=== PATIENT | male | born 1950 | race Caucasian/White ===

== ENCOUNTER → 2017-11-27 14:55 | Outpatient (CLI) | payer MEDICARE ==
[~2017-11-27 14:55] MED LIST: ASPIRIN EC325 M1 PO; CRESTOR40 MG PO; ISOSORBIDE MONO30 M1 PO; METOPROLOL TART25 MG PO
[2017-11-30 08:24] VITALS: BMI 23.4
== END | disposition home or self-care (01) ==
LOC: D.US 14:55
DX: N43.3 Hydrocele, unspecified (principal)

== ENCOUNTER 2017-11-30 07:45 | Day surgery (SDC) | payer MEDICARE ==
[2017-11-29 09:56] LABS: BASOPHILS 0.4 % (0-2); EOSINOPHILS 2.4 % (0-7); HEMATOCRIT 44.8 % (42.0-54.0); HEMOGLOBIN 15.6 g/dL (13.5-17.5); IMMATURE GRANULOCYTES 0.3 % (0-5); LYMPHOCYTES 21.6 % (15-50); MCH 33.2 pg (26.0-34.0); MCHC 34.8 g/dL (31.0-37.0); MCV 95.3 fL (80.0-100.0); MEAN PLATELET VOLUME 9.3 fL (7.4-10.4); MONOCYTES 5.8 % (2-11); NEUTROPHILS 69.5 % (40-80); PLATELET COUNT 181 10x3/uL (130-400); WBC 13.7 10x3/uL (4.8-10.8)
[2017-11-29 10:09] LABS: APTT 28.4 SECONDS (22.8-39.4); INR 0.95 (0.85-1.17); PROTIME 12.3 SECONDS (11.6-15.0)
[~2017-11-30] VITALS: Ht 177.8 cm; Wt 73.9 kg
--- NOTE | ~2017-11-30 | OP ---
PATIENT NAME: GERALDINE ALBERT MEDICAL RECORD: [id number] :50 LOCATION:D.OPS ADMISSION DATE: SURGEON: ZACH HUTTON MD DATE OF OPERATION: 11/30/2017 SURGEON: Zach Huttno MD ANESTHESIA: General anesthesia by Fabien Diana CRNA. DIAGNOSIS: Left hydrocele. PROCEDURE: Left hydrocelectomy, Jaboulay procedure. FINDINGS: Left hydrocele contained 500 mL of fluid. Signs of previous recurrent epididymal orchitis. SPECIMENS: 1. Left hydrocele sac. 2. Left appendix epididymis. ESTIMATED BLOOD LOSS: None. CLINICAL HISTORY: This is a 67-year-old male, who complains of a progressively enlarging left hemiscrotum. He has had episodic left testicular pain for the past 13 years. Now that it has increased in size, he finds it difficult to walk. He walks forces at [employer] as his job. The lesion in the hemiscrotum transilluminates and is presumably a hydrocele. He comes to have it drained. He is not allergic to any medications. He was given Ancef valuation consultant to the OR. DESCRIPTION OF PROCEDURE: The patient was given induction of general anesthesia in supine position. He was then shaved, prepped and draped. A midline scrotal incision was made about 3.5-4 cm in length. We then went down through the dartos fascia with a #10 scalpel blade. This brought us immediately to the hydrocele. The tunica vaginalis was incised and we started to drain the fluid out of the hydrocele. The Yankauer suction was placed into the left hemiscrotum to remove the hydrocele fluid. A total of 500 mL of fluid was removed. The incision was lengthened using Metzenbaum scissors. The testicle was then everted out of the left hemiscrotum. There is significant scarring and cross healing from previous epididymal orchitis. There was another large cyst, which was deflated and the cyst wall was marsupialized. The appendix epididymis was seen to prevent future pain from torsion of the appendix epididymis. This was completely excised. The redundant hydrocele sac was excised using the Bovie. This was then sutured to its opposite member posterior to the cord. This is a Jaboulay procedure. 3-0 Vicryl was used for this procedure. The testicle was then returned to its hemiscrotum. The dartos fascia was reapproximated using simple interrupted 3-0 Vicryl. A 4-0 Monocryl in simple interrupted form was used to close the scrotal skin. We infiltrated the incision line with 0.25% Marcaine with epinephrine. Fluffs and mesh panties were then given to the patient. I will see the patient in followup in 2 weeks' time to review the pathology with him and to check the wound healing. TRANSINT:[id number] Voice Confirmation ID: [id number] DOCUMENT ID: [id number] OPERATIVE REPORT [id number] GERALDINE ALBERT, ZACH Dixon MD at 1830 CC: [id number] DICTATION DATE: 11/30/17 1441 PLANT SPECIALIST: 11/30/[address] [facility] 11/30/17 [facility] [address] [place] [address]
[2017-11-30 08:24] VITALS: BP 111/67; Ht 177.8 cm; Wt 73.9 kg
== END 2017-11-30 16:45 | disposition home or self-care (01) ==
LOC: D.OPS 07:45 → D.PAN 10:00 → D.OPS 10:25 → D.PAN 10:30 → D.OPS 12:30
PROVIDERS: Anesthesiology
DX: N43.3 Hydrocele, unspecified (principal); Q55.4 Other congenital malformations of vas deferens, epididymis, seminal vesicles and prostate; Z01.812 Encounter for preprocedural laboratory examination

== ENCOUNTER 2019-10-02 22:59 | Emergency (ER) | payer MEDICARE ==
[~2019-10-02] VITALS: Ht 177.8 cm; Wt 72.7 kg
[2019-10-02 23:05] VITALS: Ht 177.8 cm; Wt 72.7 kg
[2019-10-03 00:15] LABS: BASOPHILS 0.3 % (0-2); EOSINOPHILS 1.5 % (0-7); HEMATOCRIT 43.3 % (42.0-54.0); HEMOGLOBIN 14.6 g/dL (13.5-17.5); IMMATURE GRANULOCYTES 0.4 % (0-5); LYMPHOCYTES 14.2 % (15-50); MCH 31.9 pg (26.0-34.0); MCHC 33.7 g/dL (31.0-37.0); MCV 94.5 fL (80.0-100.0); MEAN PLATELET VOLUME 9.5 fL (7.4-10.4); MONOCYTES 4.7 % (2-11); NEUTROPHILS 78.9 % (40-80); PLATELET COUNT 186 10x3/uL (130-400); RBC 4.58 10x6/uL (4.20-6.10); RDW 14.3 % (11.5-14.5); WBC 14.3 10x3/uL (4.8-10.8)
[2019-10-03 00:22] LABS: APTT 26.6 SECONDS (22.8-39.4); CALC OSMOLALITY 276 mosm/kg (275-300); CALCIUM 9.6 mg/dL (8.5-10.1); CARBON DIOXIDE 28.6 mmol/L (21.0-32.0); CHLORIDE - SERUM 101 mmol/L (98-107); CREATININE - SERUM 1.3 mg/dL (0.6-1.3); GLUCOSE 156 mg/dL (74-106); INR 0.93 (0.85-1.17); POTASSIUM - SERUM 3.8 mmol/L (3.5-5.1); PROTIME 12.5 SECONDS (11.6-15.0); SODIUM 136 mmol/L (136-145); UREA NITROGEN 17 mg/dL (7-18); eGFR NON AFRICAN AMERICAN 58 mL/min (90-120)
[2019-10-03 00:36] LABS: ALBUMIN 3.5 g/dL (3.4-5.0); ALKALINE PHOSPHATASE 126 U/L (30-120); ALT (SGPT) 23 U/L (10-68); BILIRUBIN - TOTAL 0.21 mg/dL (0.2-1.3); CKMB 1.5 U/L (0.0-3.6); CREATINE KINASE 135 UL (21-232); PROTEIN - SERUM 7.9 g/dL (6.4-8.2); TROPONIN-I < 0.017 ng/mL (0.000-0.060)
[2019-10-03 02:38] VITALS: BP 111/76
== END 2019-10-03 02:38 | disposition left against medical advice (07) ==
LOC: D.ER 22:59
PROVIDERS: Emergency Medicine
DX: I16.0 Hypertensive urgency (principal); I10 Essential (primary) hypertension; F17.210 Nicotine dependence, cigarettes, uncomplicated; F41.9 Anxiety disorder, unspecified; R06.00 Dyspnea, unspecified; I25.2 Old myocardial infarction; Z95.5 Presence of coronary angioplasty implant and graft; I25.10 Atherosclerotic heart disease of native coronary artery without angina pectoris; K21.9 Gastro-esophageal reflux disease without esophagitis

== ENCOUNTER 2019-10-05 13:48 | Emergency (ER) | payer MEDICARE ==
[~2019-10-05] VITALS: Ht 177.8 cm; Wt 75.0 kg
[2019-10-05 13:54] VITALS: Ht 177.8 cm; Wt 75.0 kg
[2019-10-05] MEDS ORDERED: LISINOPRIL-HCT1 EAC4 PO (14:39)
[2019-10-05 15:06] VITALS: BP 115/75
== END 2019-10-05 15:07 | disposition home or self-care (01) ==
LOC: D.ER 13:48
DX: I10 Essential (primary) hypertension (principal); I25.2 Old myocardial infarction; Z72.0 Tobacco use; K21.9 Gastro-esophageal reflux disease without esophagitis

== ENCOUNTER → 2019-10-15 10:52 | Outpatient (CLI) | payer MEDICARE ==
[2019-10-05 13:54] VITALS: BMI 23.7
[~2019-10-15 10:52] MED LIST changes: +LISINOPRIL-HCT1 EAC4 PO
== END | disposition home or self-care (01) ==
LOC: D.CT 10:52
PROVIDERS: ATTEND Nurse Practitioner Family
DX: R10.9 Unspecified abdominal pain (principal); K92.1 Melena

== ENCOUNTER → 2019-11-01 07:53 | Outpatient (CLI) | payer MEDICARE ==
[2019-10-05 13:54] VITALS: BMI 23.7
== END | disposition home or self-care (01) ==
LOC: D.HCCECHO 07:53
PROVIDERS: ATTEND Internal Medicine Cardiovascular Disease
DX: I25.10 Atherosclerotic heart disease of native coronary artery without angina pectoris (principal); R01.1 Cardiac murmur, unspecified

== ENCOUNTER 2019-11-11 07:24 | Day surgery (SDC) | payer MEDICARE ==
[~2019-11-11] VITALS: Ht 177.8 cm; Wt 66.4 kg
--- NOTE | ~2019-11-11 | HEMODYNAMI ---
PATIENT:GERALDINE ALBERT MEDICAL RECORD: [id number] : 50 LOCATION:D.CAT ADMISSION DATE: 11/11/19 Generatedon:11/11/201910:09 Patient name: GERALDINE ALBERT Patient #: [id number] SSN: [id number] : 1950 Date of study: 11/11/2019 Page: Of Hemodynamic Procedure Report Patient Data Patient Demographics Procedure consent was obtained First Name: GERALDINE Gender: Male Last Name: ROOSEVELT : 1950 Middle Initial: ANOOP Age: 69 year(s) Patient #: [id number] Race: SSN: [id number] Additional ID: [id number] Contact details [address]: [address] [place] [address] State: [place] City: [place] Zip code: [address] Past Medical History Performed procedures and imaging results Date Procedure Procedure Results Comments 11/01/2019 Stress testing Positive->Intermediate with SPECT MPI risk Allergies: No known allergies Admission Admission Data Admission Date: 11/11/2019 Admission Time: 7:24 Arrival Date: 11/11/2019 Arrival Time: 0:00 Admit Source: Other Insurance Payor: Medicare [facility] #: [id number] Height (in.): 70 BSA: 1.83 (m2) Height (cm.): 177.8 BMI: 20.99 (kg/m2) Weight (lbs.): 146.3 Weight (kg.): 66.36 Lab Results Lab Result Date: 11/11/2019 Lab Result Time: 0:00 Biochemistry Name Units Result Min Max BUN mg/dl 17 --(---*)-- 7 18 Creatinine mg/dl 1.3 --(---*)-- 0.6 1.3 eGFR ml/min 58 *-(----)-- 90 120 NONAFRICAN CBC Name Units Result Min Max Hematocrit % 45.3 --(-*--)-- 42 54 Hemoglobin g/dl 15.1 --(-*--)-- 13.5 17.5 Procedure Procedure Types Cath Procedure Diagnostic Procedure [facility] w/Coronaries Procedure Description Procedure Date Procedure Date: 11/11/2019 Procedure Start Time: 9:57 Procedure End Time: 10:06 Procedure Staff Name Function Kavon Islas MD Performing Physician Keila Valladares RT Monitor Elvia Keenan RT Scrub Merced Ruiz RN Nurse Procedure Data Cath Procedure Fluoroscopy Diagnostic fluoroscopy Total fluoroscopy Time: 1 time: 1 min min Diagnostic fluoroscopy Total fluoroscopy dose: 336 dose: 336 mGy mGy Contrast Material Contrast Material Type Amount (ml) Isovue 370 47 Entry Location Entry Primary Successful Side Size Upsize Upsize Entry Closure Carcamo ccessful Closure Location (Fr) 1 (Fr) 2 (Fr) Remarks Device Remarks Radial Right 6 Fr Mechanical artery Short Compression Estimated blood loss: 5 ml Diagnostic catheters Device Type Used For End Catheter Placement DIAGNOSTIC Avon 110cm 5 Procedure Fr catheter ([id number]) Procedure Complications No complications Procedure Medications Medication Administration Route Dosage Oxygen etCO2 Nasal cannula 2 l/min Lidocaine 2% added to field 20 Heparin Flush Bag added to field 2 bags (1000units/500ml NS) 0.9% NaCl I.V. 100 ml/hr Radial Cocktail I.A. 1 syringe (Verapamil 2mg/Nitro 400mcg/Heparin 1500units) Versed I.V. 2 mg Fentanyl I.V. 50 mcg Versed I.V. 2 mg Hemodynamics Rest BSA: 1.83 (m2) HGB: 15.1 (g/dl) O2 Consumption: Estimated: 212.69 (ml/min) O2 Co nsumption indexed: Estimated:116.22 (ml/min/m) Heart Rate: 71 (bpm) Gradients Valve Time Site Site Mean SEP/DFP Peak To Heart Use 1 2 (mmHg) (sec/min) Peak Rate (mmHg) (bpm) Aortic 10:00 LV AO 84 Snapshots Pre Cath Intra NCS Post Cath Vital Signs Time Heart Resp SPO2 etCO2 NIBP Rhythm Pain Sedation Rate (ipm) (%) (mmHg) (mmHg) Status Level (bpm) 9:43:44 57 18 100 29.9 107/74(82) NSR 0 (11) 10(A) , No pain 9:47:52 73 14 100 23.9 102/70(77) NSR 0 (11) 10(A) , No pain 9:52:00 78 19 100 23.9 100/65(78) NSR 0 (11) 10(A) , No pain 9:56:06 73 19 100 33 92/67(75) NSR 0 (11) 10(A) , No pain 10:00:14 85 15 100 29.2 86/50(78) NSR 0 (11) 9(A) , No pain 10:04:18 85 15 98 18.7 92/58(68) NSR 0 (11) 10(A) , No pain Medications Time Medication Route Dose Verified Delivered Reason Notes Effectiveness by by 9:45:04 Oxygen etCO2 2 l/min Kavon Blackwood used for Nasal St Dima Ruiz RN procedure cannula 9:45:10 Lidocaine 2% added 20ml Kavon Krishnamurthyie used for to vial St Dima Ruiz RN procedure field WOOD 9:45:16 Heparin Flush added 2 bags Kavon Jacobson for local Bag to [facility] anesthetic (1000units/500ml field MD WOOD NS) 9:45:25 0.9% NaCl I.V. 100 Kavon Blackwood Per ml/hr St Dima Ruiz RN physician 9:56:33 Versed I.V. 2 mg Kavon Blackwood for sedation St Dima Ruiz RN, MD 9:56:39 Fentanyl I.V. 50 mcg Kavon Blackwood for sedation St Dima Ruiz RN, MD 9:58:31 Radial Cocktail I.A. 1 Kavon Jacobson for (Verapamil syringe [facility] vasodilation 2mg/Nitro MD WOOD 400mcg/Heparin 1500units) 10:00:08 Versed I.V. 2 mg Kavon Blackwood for sedation St Dima Ruiz RN, MD Procedure Log Time Note 9:18:10 Informed consent obtained and on chart 9:18:39 Diagnostic Cath Status : Elective 9:21:24 Arrival Date: 11/11/2019 12:00:00 AM 9:21:25 Admit Source: Other 9:22:48 ACC Patient presents with Stable Angina CCS Anginal Class 2--Slight limitation of ordinary activity. 9:22:51 Procedure Status Elective Heart Cath (OP). 9:22:53 Time tracking: Regular hours (M-F 7:00 - 5:00) 9:22:57 Plan of Care:Hemodynamics will remain stable., Cardiac rhythm will remain stable., Comfort level will be maintained., Respiratory function will remain adequate., Patient/ family verbilizes understanding of procedure., Procedure tolerated without complication., Recovers from procedure without complications.. 9:23:07 H&P Date Dictated: 10/17/2019 Within 30 days and on chart.. 9:23:09 Pre-procedure instructions explained to patient. 9:23:09 Pre-op teaching completed and patient verbalized understanding. 9:23:11 Family unavailable. 9:23:13 Patient NPO since Midnight. 9:23:34 Stress Test: yes; abnormal anterior and inferior 9:25:21 Lab results completed and on chart. 9::55 Lab Result : Creatinine 1.3 mg/dl 9::55 Lab Result : BUN 17 mg/dl 9::55 Lab Result : eGFR NONAFRICAN 58 ml/min 9:25:55 Lab Result : Hemoglobin 15.1 g/dl 9:25:55 Lab Result : Hematocrit 45.3 % 9:26:07 Insurance Payor : Medicare 9:26:10 Patient Height : 70 inches 9:26:14 Patient Weight : 146.3 lbs 9:27:34 Elvia Keenan RT(R) (CV) sent for patient. Start room use. 9:28:23 Patient allergic to No known allergies 9:32:38 Patient received from Pre/Post Procedure Room to CCL 1 Alert and oriented. Tansferred to table in Supine position. 9:32:39 Warm blankets applied, and viktoria hugger turned on for patient comfort. 9:32:39 Correct patient and procedure confirmed by team. 9:32:40 ECG and BP/O2 sat monitors applied to patient. 9:32:43 Is the patient allergic to Iodine/contrast media? No. 9:32:44 Was the patient premedicated? No 9:32:49 Is patient on blood thinner?No 9:32:51 Patient diabetic? No. 9:32:52 ----Pre-sedation anethsthesia assessment.---- 9:32:55 Previous problem with sedation/anesthesia? No ? 9:32:56 Snore? Yes 9:32:57 Sleep apnea? No 9:32:59 Deviated septum? No 9:33:00 Opens mouth fully? Yes 9:33:02 Sticks out tongue? Yes 9:33:04 Airway obstruction? No ? 9:33:06 Dentures? Yes ? 9:33:10 Patient pain scale 0/10 ?. 9:33:13 Pre procedure: right dorsailis pedis pulse 2+ Normal; easily identifiable; not easily obliterated 9:33:16 Alarms reviewed by R. N. 9:33:17 Sharps counted by scrub and verified by R.N. 9:33:28 IV patent on arrival in left forearm with 0.9% NaCl at [facility]. 9:42:02 Right Radial & Right Groin area was prepped with chlora-prep and draped in sterile fashion 9:42:26 Use device set Radial Dx or PCI 9:42:27 ACIST Syringe (31355) opened to sterile field. 9:42:28 Medline Cath Pack ([id number]) opened to sterile field. 9:42:29 Bag Decanter (2002S) opened to sterile field. 9:42:29 ACIST Hand Control (01651) opened to sterile field. 9:42:30 ACIST Manifold (23315) opened to sterile field. 9:42:32 MBrace Wrist Support ([id number]) opened to sterile field. 9:42:36 EMERALD Guide Wire (852-736) opened to sterile field. 9:42:36 SHEATH 6FR RAIN ([id number]) opened to sterile field. 9:42:42 Vital chart was started 9:42:43 Full Disclosure recording started 9:42:45 Baseline sample Acquired. 9:42:48 Rhythm: sinus rhythm 9:45:04 Oxygen 2 l/min etCO2 Nasal cannula was administered by Merced Ruiz RN; used for procedure; Verbal order read back and verified. 9:45:10 Lidocaine 2% 20ml vial added to field was administered by Merced Ruiz RN; used for procedure; Verbal order read back and verified. 9:45:16 Heparin Flush Bag (1000units/500ml NS) 2 bags added to field was administered by Kavon Islas MD; for local anesthetic; Verbal order read back and verified. 9:45:25 0.9% NaCl 100 ml/hr I.V. was administered by Merced Ruiz RN; Per physician; Verbal order read back and verified. 9:55:37 --------ALL STOP TIME OUT------ 9:55:37 Final Timeout: patient, procedure, and site verified with staff and physician. All members of the team are in agreement. 9:55:40 Right Radial & Right Groin site verified by team. 9:55:43 Fire Safety Assessment: A--An alcohol-based skin anteseptic being used preoperatively., C--Open oxygen or nitrous oxide is being used., D--An ESU, laser, or fiber-optic light is being used. 9:55:47 Physical assessment completed. ASA score P 2 - A patient with mild systemic disease as per Kavon Islas MD. 9:55:52 3a) 45-59 Moderately reduced kidney function. 9:55:57 Maximum allowable contrast dose (3.7 X eGFR X 0.75)161 ml. 9:56:03 Sedation plan: IV Moderate Sedation Medication:Versed, Fentanyl 9:56:07 Procedure started. 9:56:33 Versed 2 mg I.V. was administered by Merced Ruiz RN; for sedation; Verbal order read back and verified. 9:56:39 Fentanyl 50 mcg I.V. was administered by Merced Ruiz RN; for sedation; Verbal order read back and verified. 9:57:00 Local anesthetic to right radial artery with Lidocaine 2% by Kavon Islas MD.INITIAL ACCESS ONLY 9:57:35 A 6 Fr Short sheath was inserted into the Right Radial artery 9:58:31 Radial Cocktail (Verapamil 2mg/Nitro 400mcg/Heparin 1500units) 1 syringe I.A. was administered by Kavon Islas MD; for vasodilation; Verbal order read back and verified. 9:58:50 A DIAGNOSTIC Avon 110cm 5 Fr catheter ([id number]) was advanced over the wire and used for Procedure. 9:59:13 LV gram done using JANSEN 9:59:18 Injector settings: Ml/sec: 5, Volume: 15, 9:59:52 LV hemodynamics recorded. 10:00:03 EF : 55 % 10:00:08 Versed 2 mg I.V. was administered by Merced Ruiz RN; for sedation; Verbal order read back and verified. 10:00:20 LCA angiography performed. 10:00:24 Injector settings: Ml/sec: 3, Volume: 6, 10:01:39 RCA angiography performed. 10:01:42 Injector settings: Ml/sec: 3, Volume: 6, 10:02:24 ACCDominant side:Left 10:03:28 Catheter removed. 10:03:33 ZEPHYR REGULAR TR BAND (838121) opened to sterile field. 10:03:45 Sheath removed intact; hemostasis achieved with Mechanical Compression to the Right Radial artery. 10:03:48 Procedure ended.(Physican Out) 10:03:57 Fluoroscopy time 01.00 minutes. 10:04:01 Fluoroscopy dose: 336 mGy 10:04:01 Flurop Dose total: 336 10:04:14 Dose Area Product 57195 mGy/cm. 10:04:35 Contrast amount:Isovue 370 47ml. 10:04:41 Maximum allowable dose exceeded? No. 10:04:42 Sharps counted by scrub and verified by R.N. 10:04:45 Cades band inflated with 10cc of air. 10:04:47 Post Procedure Pulses reassessed and unchanged 10:04:50 Post procedure: right dorsailis pedis pulse 2+ Normal; easily identifiable; not easily obliterated. 10:04:53 Post-procedure physical assessment completed. ASA score P 2 - A patient with mild systemic disease as per Kavon Islas MD. 10:04:58 Post procedure rhythm: sinus rhythm 10:05:01 Estimated blood loss: 5 ml 10:05:02 Post procedure instruction explained to patient.Patient verbalizes understanding. 10:05:02 Patient needs reinforcement of post procedure teaching. 10:05:36 Procedure and supply charges have been captured, reviewed, submitted and are correct. 10:05:40 Procedure Complication : No complications 10:05:43 Vital chart was stopped 10:05:50 [facility] Findings: MVD- MD will discuss options w/ pt 10:05:51 Operative report dictated upon procedure completion. 10:05:52 See physician's report for complete and final results. 10:06:00 Report given to Pre/Post Procedure Room. 10:06:03 Patient transfered to Pre/Post Procedure Room with Stretcher. 10:06:10 Procedure ended. 10:06:10 Full Disclosure recording stopped 10:06:19 End room use (Document Last) 10:06:29 End room use (Document Last) Device Usage Item Name Manufacture Quantity Catalog Hospital Part Current Minima l Lot# / Number Charge Number Stock Stock Serial# Code ACIST Acist 1 71283 [id number] [id number] 20 Syringe Medical (11889) Systems Inc Medline Medline 1 [id number] 710768 53893 073295 5 Cath Pack ([id number]) Bag Microtek 1 2001S 038550 60506 767643 5 Decanter Medical Inc. () ACIST Hand Acist 1 26304 085869 182380 004613 5 Control Medical (93713) Systems Inc ACIST Acist 1 91647 571051 993940 724389 5 Manifold Medical (95919) Systems Inc MBrace Advanced 1 140-0250-00 762838 44635 170640 5 Wrist Vascular Support Dynamics ([id number]) [facility] Cardinal 1 161-419 103925 680144 986600 5 Guide Wire Health (242-582) SHEATH 6FR Cardinal 1 6537972 585963 4405740 418334 5 [facility] (7632783) DIAGNOSTIC Terumo 1 40-1777 422567 851656 611297 5 Avon 110cm 5 Fr catheter (805802) ZEPHYR Cardinal 1 138374 496336 9342241 666259 5 REGULAR TR Health BAND (288910) Signature Audit [place] Stage Time Signature Unsigned Intra-Procedure 11/11/2019 Keila Valladares 10:06:29 AM RT(R) Intra-Procedure 11/11/2019 Merced Ruiz RN 10:07:57 AM Intra-Procedure 11/11/2019 Kavon Mcdermott 10:09:00 AM Dima WOOD [address] [place] [address]
[2019-11-11] MEDS ORDERED: LIPITOR40 MG PO (07:48)
[2019-11-11 08:19] VITALS: BP 111/80; Ht 177.8 cm; Wt 66.4 kg
[2019-11-11 08:33] LABS: CARBON DIOXIDE 25.8 mmol/L (21.0-32.0); CHOL - HDL RATIO 4.1 ratio (2.3-4.9); CREATININE - SERUM 1.3 mg/dL (0.6-1.3); LDL-HDL RATIO 2.4 ratio (1.5-3.5); POTASSIUM - SERUM 3.8 mmol/L (3.5-5.1)
[2019-11-11 08:40] LABS: BASOPHILS 0.2 % (0-2); EOSINOPHILS 1.6 % (0-7); HEMATOCRIT 45.3 % (42.0-54.0); HEMOGLOBIN 15.1 g/dL (13.5-17.5); IMMATURE GRANULOCYTES 0.2 % (0-5); MCH 31.7 pg (26.0-34.0); MCHC 33.3 g/dL (31.0-37.0); MCV 95.2 fL (80.0-100.0); MEAN PLATELET VOLUME 9.7 fL (7.4-10.4); MONOCYTES 6.1 % (2-11); NEUTROPHILS 71.9 % (40-80); PLATELET COUNT 163 10x3/uL (130-400); RBC 4.76 10x6/uL (4.20-6.10); RDW 14.5 % (11.5-14.5); WBC 11.6 10x3/uL (4.8-10.8)
--- NOTE | 2019-11-11 10:20 | NUR ---
PT REC'D TO ROOM 4 VIA STRETCHER FROM ELEVATOR WORKER. MONITORS ESTAB. NO FAMILY AT BS, DR. CHAHAL HAS CALLED AND UPDATED PTS PER PT REQUEST. SEE LUNCHROOM OPERATOR. ALARMS ON AND C/L IN REACH.
--- NOTE | 2019-11-11 10:35 | NUR ---
R WRIST SITE C/D/I, NO S/S BLEEDING OR HEMATOMA. R ARM/HAND WARM WITH PULSES PALP. VSS. PT DENIES PAIN OR NEEDS. ALARMS ON AND C/L IN REACH.
--- NOTE | 2019-11-11 11:05 | NUR ---
DR. CHAHAL AT TO TALK WITH PT.
--- NOTE | 2019-11-11 11:20 | NUR ---
R WRIST C/D/I, 3CC AIR REMOVED FROM Z BAND, NO S/S BLEEDING OR SWELLING. PT UP IN BED, GIVEN SANDWICH TRAY AND TEA PER REQUEST. VSS. C/L IN REACH.
--- NOTE | 2019-11-11 11:35 | NUR ---
TOTAL 5CC AIR REMOVED FROM Z BAND, NO S/S BLEEDING OR SWELLING. C/L IN REACH.
--- NOTE | 2019-11-11 11:40 | NUR ---
DR. CARRINGTON'S NURSE AT TO TALK WITH PT: RE D/C HOME TODAY, THEY WILL CALL WITH APPT TO SEE DR. CARRINGTON.
--- NOTE | 2019-11-11 11:45 | NUR ---
TOTAL 7CC AIR REMOVED FROM Z BAND, NO S/S BLEEDING OR SWELLING. PULSES PALP. PT HAS SPOKEN WITH RE: D/C, PLAN FOR D/C AT 1230.
--- NOTE | 2019-11-11 12:00 | NUR ---
AT BS, UPDATE GIVEN AND QUESTIONS ANSWERED. ALL AIR REMOVED FROM Z BAND, NO S/S BLEEDING OR SWELLING. WILL CONT CLOSE MONITORING. ALARMS ON AND C/L IN REACH.
--- NOTE | 2019-11-11 12:15 | NUR ---
ALL AIR REMOVED FROM Z BAND, NO S/S BLEEDING. PULSE PALP. Z BAND OFF AND DSG APPLIED. PIV D/C'D INTACT, DSG APPLIED. PT ALLOWED UP TO GET DRESSED AND GO TO BR INDEPENDENTLY.
--- NOTE | 2019-11-11 12:20 | NUR ---
ALL DISCHARGE INSTRUCTIONS REVIEWED WITH PT AND , INCLUDING RESTRICTIONS, MEDS, AND DR. THOMAS OFFICE TO CALL WITH F/U APPT.
--- NOTE | 2019-11-11 12:25 | NUR ---
PT D/C'D VIA WC, WRIST IMMOBILIZER ON. PT HAS ALL PAPERWORK AND BELONGINGS.
--- NOTE | 2019-11-12 08:21 | OP ---
PATIENT NAME: GERALDINE ALBERT MEDICAL RECORD: [id number] :50 LOCATION:D.CAT ADMISSION DATE: SURGEON: DAVID CHAHAL MD DATE OF OPERATION: 11/11/2019 PROCEDURE: Left heart catheterization, selective coronary angiography, right radial approach. CATHETERS: Radial sheath, [place] catheter. The procedure was well tolerated. The patient returned to baxter. Sheath removed. TR band was placed. FINDINGS: Left ventriculography in 30-degree JANSEN view: Normal wall motion, normal systolic function. CORONARY ANATOMY: LEFT MAIN: Left main is free of disease. LAD: Has an 80% to 90% stenosis proximal portion with some bridging distally. CIRCUMFLEX: Has a mid stenosis of 80%, then there are 2 OM with 90% stenosis in the proximal portion. RIGHT CORONARY ARTERY: Totally occluded, fills via left to right collaterals. IMPRESSION: Normal LV systolic function, multivessel coronary artery disease. Given anatomy probably best suited for a bypass grafting. Dr. Barbour is consulted for that purpose. TRANSINT:[id number] Voice Confirmation ID: [id number] DOCUMENT ID: [id number] DAVID CHAHAL MD at 0821 CC: [id number] DICTATION DATE: 11/11/19 1014 [employer] BANKER: 11/11/191924 [facility] 11/11/19 [address] [place] [address]
== END 2019-11-11 12:25 | disposition home or self-care (01) ==
LOC: D.CATH 07:24
PROVIDERS: ATTEND Internal Medicine Interventional Cardiology
DX: I10 Essential (primary) hypertension (principal); I25.2 Old myocardial infarction; J44.9 Chronic obstructive pulmonary disease, unspecified; R06.00 Dyspnea, unspecified; I25.119 Atherosclerotic heart disease of native coronary artery with unspecified angina pectoris; E78.5 Hyperlipidemia, unspecified; R01.1 Cardiac murmur, unspecified

== ENCOUNTER → 2019-12-04 08:04 | Outpatient (CLI) | payer MEDICARE, OTHER ==
[2019-11-26 11:25] VITALS: BMI 21.2
[~2019-12-04 08:04] MED LIST changes: +LIPITOR40 MG PO; +LOPRESSOR25 MG PO; +LOW DOSE ASPIRI81 M1 PO; +PERCOCET 5-3251 TAB PO
[2019-12-04 08:29] LABS: BASOPHILS 0.2 % (0-2); EOSINOPHILS 2.9 % (0-7); HEMATOCRIT 31.3 % (42.0-54.0); HEMOGLOBIN 10.3 g/dL (13.5-17.5); IMMATURE GRANULOCYTES 0.5 % (0-5); LYMPHOCYTES 20.7 % (15-50); MCH 31.1 pg (26.0-34.0); MCHC 32.9 g/dL (31.0-37.0); MCV 94.6 fL (80.0-100.0); MEAN PLATELET VOLUME 8.7 fL (7.4-10.4); MONOCYTES 7.2 % (2-11); NEUTROPHILS 68.5 % (40-80); RBC 3.31 10x6/uL (4.20-6.10); RDW 15.1 % (11.5-14.5); WBC 10.2 10x3/uL (4.8-10.8)
[2019-12-04 08:30] LABS: PLATELET COUNT 246 10x3/uL (130-400)
[2019-12-04 08:42] LABS: CALCIUM 8.1 mg/dL (8.5-10.1); CARBON DIOXIDE 25.1 mmol/L (21.0-32.0); CREATININE - SERUM 1.1 mg/dL (0.6-1.3); POTASSIUM - SERUM 4.1 mmol/L (3.5-5.1)
== END | disposition home or self-care (01) ==
LOC: D.LAB 08:04
PROVIDERS: ATTEND Thoracic Surgery (Cardiothoracic Vascular Surgery)
DX: Z48.812 Encounter for surgical aftercare following surgery on the circulatory system (principal)

== ENCOUNTER 2020-05-31 08:02 | Observation (INO) | payer MEDICARE, OTHER ==
[~2020-05-31] VITALS: Ht 177.8 cm; Wt 75.0 kg
[2020-05-31 08:34] LABS: BASOPHILS 0.3 % (0-2); EOSINOPHILS 2.2 % (0-7); HEMATOCRIT 46.5 % (42.0-54.0); HEMOGLOBIN 15.5 g/dL (13.5-17.5); IMMATURE GRANULOCYTES 0.2 % (0-5); LYMPHOCYTE ABS# 2.53 10x3/uL (1.32-3.57); LYMPHOCYTES 24.6 % (15-50); MCH 30.7 pg (26.0-34.0); MCHC 33.3 g/dL (31.0-37.0); MCV 92.1 fL (80.0-100.0); MEAN PLATELET VOLUME 9.8 fL (7.4-10.4); MONOCYTES 7.1 % (2-11); NEUTROPHIL ABS# 6.76 10x3/uL (1.78-5.38); NEUTROPHILS 65.6 % (40-80); RBC 5.05 10x6/uL (4.20-6.10); RDW 16.2 % (11.5-14.5); WBC 10.3 10x3/uL (4.8-10.8)
[2020-05-31 08:35] LABS: PLATELET COUNT 193 10x3/uL (130-400)
[2020-05-31 08:36] LABS: CALC OSMOLALITY 281 mosm/kg (275-300); CALCIUM 8.9 mg/dL (8.5-10.1); CARBON DIOXIDE 24.1 mmol/L (21.0-32.0); CHLORIDE - SERUM 104 mmol/L (98-107); CREATININE - SERUM 1.2 mg/dL (0.6-1.3); GLUCOSE 138 mg/dL (74-106); POTASSIUM - SERUM 3.8 mmol/L (3.5-5.1); SODIUM 139 mmol/L (136-145); UREA NITROGEN 18 mg/dL (7-18); eGFR NON AFRICAN AMERICAN 64 mL/min (90-120)
[2020-05-31 08:37] LABS: APTT 28.1 SECONDS (22.8-39.4); INR 1.02 (0.85-1.17); PROTIME 12.4 SECONDS (11.6-15.0)
[2020-05-31 08:50] LABS: ALBUMIN 3.6 g/dL (3.4-5.0); ALKALINE PHOSPHATASE 110 U/L (30-120); ALT (SGPT) 26 U/L (10-68); BILIRUBIN - TOTAL 0.25 mg/dL (0.2-1.3); CKMB 3.3 U/L (0.0-3.6); CREATINE KINASE 216 UL (21-232); MAGNESIUM - SERUM 2.5 mg/dL (1.8-2.4); PROTEIN - SERUM 7.9 g/dL (6.4-8.2); TROPONIN-I < 0.017 ng/mL (0.000-0.060)
[2020-05-31 08:57] VITALS: BP 113/78
[2020-05-31 11:10] VITALS: BP 124/83
--- NOTE | 2020-05-31 11:34 | NUR ---
PT TO ROOM FROM ER. ADMIT FOR CHEST PAIN. TELEMETRY APPLIED. STATES PAIN MUCH IMPROVED THAN FROM ADMISSION.
[2020-05-31 12:16] VITALS: BP 140/84
[2020-05-31 12:39] VITALS: BP 140/84; Ht 177.8 cm; Wt 75.0 kg
[2020-05-31 14:49] LABS: CKMB 2.8 U/L (0.0-3.6); CREATINE KINASE 183 UL (21-232); TROPONIN-I < 0.017 ng/mL (0.000-0.060)
[2020-05-31 16:22] VITALS: BP 138/82
[2020-05-31 20:34] LABS: CKMB 2.5 U/L (0.0-3.6); CREATINE KINASE 169 UL (21-232)
[2020-05-31 20:35] LABS: TROPONIN-I < 0.017 ng/mL (0.000-0.060)
[2020-05-31 21:58] VITALS: BP 107/72
--- NOTE | 2020-06-01 00:06 | NUR ---
INITIAL ROUNDS COMPLETED AT 191 HRS. PT DENIED ANY DISCOMFORT. ASSESSMENT COMPLETED AT 1944 HRS. VSS. SB PER CM HR 59. ALERT AND ORIENTED TO PERSON, PLACE AND TIME. ERD. PALPABLE PERIPHERAL PULSES. IV TO RFA SL. EKG DONE. PT CURRENTLY RESTING WITH EYES CLOSED. RESP EVEN AND REGULAR. CALL LIGHT WITHIN REACH.
--- NOTE | 2020-06-01 04:32 | NUR ---
PT RESTING WITH EYES CLOSED. RESP EVEN AND REGULAR. CALL LIGHT WITHIN REACH.
[2020-06-01 04:33] LABS: BASOPHILS 0.2 % (0-2); EOSINOPHILS 1.7 % (0-7); HEMATOCRIT 43.9 % (42.0-54.0); HEMOGLOBIN 14.4 g/dL (13.5-17.5); IMMATURE GRANULOCYTES 0.4 % (0-5); LYMPHOCYTE ABS# 1.86 10x3/uL (1.32-3.57); LYMPHOCYTES 16.8 % (15-50); MCH 30.1 pg (26.0-34.0); MCHC 32.8 g/dL (31.0-37.0); MCV 91.6 fL (80.0-100.0); MEAN PLATELET VOLUME 10.1 fL (7.4-10.4); NEUTROPHIL ABS# 8.07 10x3/uL (1.78-5.38); NEUTROPHILS 72.9 % (40-80); PLATELET COUNT 201 10x3/uL (130-400); RBC 4.79 10x6/uL (4.20-6.10); WBC 11.1 10x3/uL (4.8-10.8)
[2020-06-01 05:00] LABS: CKMB 2.5 U/L (0.0-3.6); CREATINE KINASE 167 UL (21-232)
[2020-06-01 05:02] LABS: TROPONIN-I < 0.017 ng/mL (0.000-0.060)
[2020-06-01 06:00] LABS: ALBUMIN 3.2 g/dL (3.4-5.0); ANION GAP 15.9 mmol/L (8-16); BILIRUBIN - TOTAL 0.36 mg/dL (0.2-1.3); CALCIUM 8.9 mg/dL (8.5-10.1); CARBON DIOXIDE 20.7 mmol/L (21.0-32.0); CREATININE - SERUM 1.1 mg/dL (0.6-1.3); POTASSIUM - SERUM 4.6 mmol/L (3.5-5.1); PROTEIN - SERUM 7.1 g/dL (6.4-8.2)
--- NOTE | 2020-06-01 07:58 | NUR ---
AM MEDS GIVEN. PT AWAKE AND ALERT, ANSWERS QUESTIONS APPROP. RR EVEN NON LABORED. NO PAIN OR NEEDS VOICED. CLWR.
[2020-06-01 08:17] VITALS: BP 129/91
[2020-06-01 12:02] VITALS: BP 102/47; BP 136/89
--- NOTE | 2020-06-01 12:34 | NUR ---
RATIONAL FOR SCDS PROVIDED TO PT, PT STILL REFUSED SCDS STATES THAT HE IS GOING HOME.
[2020-06-01] MEDS ORDERED: LIPITOR20 MG PO (12:53)
[2020-06-01] MEDS ORDERED: LOPRESSOR25 MG PO (12:53)
[2020-06-01] MEDS ORDERED: NITROQUICK0.4 MG SL (12:54)
--- NOTE | 2020-06-01 13:13 | NUR ---
PT TO BE D/C TODAY. PT AWARE AND AGREES TO PLAN OF CARE. WILL BEGIN D/C PAPERWORK. IV D/C'D CATHETER INTACT, DRESSING APPLIED. CLWR.
--- NOTE | 2020-06-02 15:27 | CN ---
PATIENT NAME:GERALDINE ALBERT MEDICAL RECORD: [id number] : 50 LOCATION:D.M2 D.2119 ADMIT DATE: 05/31/20 ACCOUNT: [id number] CONSULTING PHYSICIAN: TRACY CLEANING MD REFERRING PHYSICIAN: JOSE JACINTO MD DATE OF CONSULTATION: 05/31/2020 HISTORY: The patient is a 69-year-old male with history of atherosclerotic heart disease, status post coronary artery bypass grafting (11/2019), hypertension, hyperlipidemia, and tobacco usage, who presented with complaints of chest pain and discomfort. The patient denies exertional component to his symptoms. The patient states he has a history of chronic shortness of breath symptomatology. I asked to evaluate from a cardiovascular standpoint. PAST MEDICAL HISTORY: Significant for; 1. Atherosclerotic heart disease. 2. History of coronary artery bypass grafting -- 11/2019. 3. Hypertension. 4. Hyperlipidemia. 5. History of tobacco usage. MEDICATIONS (OUTPATIENT): 1. Metoprolol 12.5 b.i.d. 2. Aspirin 81 mg daily. 3. Atorvastatin 40 mg daily. 4. Oxycodone p.r.n. PHYSICAL EXAMINATION: GENERAL: Pleasant white male, lying, in no apparent distress. VITAL SIGNS: Blood pressure 113/78, pulse 90s (regular). HEENT: Sclerae are clear; conjunctivae pink. NECK: Supple; appreciate JVD. HEART: Regular rate and rhythm. I do not appreciate murmurs, gallops or rubs. CHEST: Significant for reproducible chest wall pain upon palpation; a well-healed midsternal scar. ABDOMEN: Benign. EXTREMITIES: Negative for edema. +2 pulses bilaterally. NEUROLOGIC: Nonfocal. LABORATORY DATA: Sodium is 139, potassium 3.8, BUN 18, creatinine is 1.2. Troponin is 0.017 (negative). Hemoglobin and hematocrit 15.5 and 46.5, platelet count 193, white blood cell count is 10.3. DIAGNOSTIC DATA: EKG; sinus rhythm with occasional APCs. No acute ST-T wave changes. Chest x-ray, no acute pulmonary disease. ASSESSMENT: 1. Chest pain -- atypical feature/musculoskeletal chest wall etiology. 2. History of atherosclerotic heart disease. 3. History of coronary artery bypass grafting. 4. Hypertension. 5. Hyperlipidemia. 6. History of tobacco usage -- quit smoking 11/2019 (via patient). CONSULT REPORT [id number] GERALDINE ALBERT PLAN: I will resume home medication regimen at this time. There is no evidence of acute cardiac decompensation/event at this time. I will obtain echocardiogram in morning to assess LV function and valvular status. Further recommendations clinically indicated. Thank you for allowing us to participate in the care of this patient. TRANSINT:[id number] Voice Confirmation ID: [id number] DOCUMENT ID: [id number] TRACY CLEANING MD at 1527 CC: [id number] DICTATION DATE: 05/31/20 1414 FRUIT RANCHER: 05/31/20 1858 DIS IN 06/01/20 [facility] [address] [place] [address]
== END 2020-06-01 13:18 | disposition home or self-care (01) ==
LOC: D.ER 08:02 → D.M2 09:46 → OBSVTIME 09:46 → D.M2 06-01 13:18
PROVIDERS: Family Medicine; ADMIT Family Medicine; ATTEND Family Medicine
DX: R07.9 Chest pain, unspecified (principal); I10 Essential (primary) hypertension; K21.9 Gastro-esophageal reflux disease without esophagitis; E78.5 Hyperlipidemia, unspecified; I25.10 Atherosclerotic heart disease of native coronary artery without angina pectoris

== ENCOUNTER → 2020-06-04 08:59 | Outpatient (CLI) | payer MEDICARE, OTHER ==
[2020-05-31 12:39] VITALS: BMI 23.7
[~2020-06-04 08:59] MED LIST changes: +LIPITOR20 MG PO; +NITROQUICK0.4 MG SL
== END | disposition home or self-care (01) ==
LOC: D.LAB 08:59
PROVIDERS: ATTEND Internal Medicine Pulmonary Disease
DX: Z11.52 Encounter for screening for COVID-19 (principal)

== ENCOUNTER → 2020-06-09 12:31 | Outpatient (CLI) | payer MEDICARE ==
[2020-05-31 12:39] VITALS: BMI 23.7
--- NOTE | 2020-06-01 13:28 | NUR ---
PT GIVEN D/C INSTRUCTIONS. PT STATES UNDERSTANDING, SON AT BEDSIDE. PT REFUSED WHEELCHAIR OUTSIDE, ALL BELONGINGS TAKEN WITH PT TIME OF D/C. NO DISTRESS NOTED ON DEPARTURE.
== END | disposition home or self-care (01) ==
LOC: D.RT 12:31
PROVIDERS: ATTEND Internal Medicine Pulmonary Disease
DX: J44.9 Chronic obstructive pulmonary disease, unspecified (principal); Z11.52 Encounter for screening for COVID-19